=== PATIENT | male | born 2000 | race Two or more races ===

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

== ENCOUNTER 2019-05-23 13:29 | Emergency (ER) | payer MEDICAID, OTHER ==
[~2019-05-23] VITALS: Ht 188 cm; Wt 75.2 kg
[2019-05-23 13:43] VITALS: BP 124/69
[2019-05-23] MEDS ORDERED: HYDROcodone/acetaminophen 10/325mg tab PO ONE (15:55)
== END 2019-05-23 16:05 | disposition home or self-care (01) ==
LOC: ER 13:30
DX: S62.326A Displaced fracture of shaft of fifth metacarpal bone, right hand, initial encounter for closed fracture (principal); W22.8XXA Striking against or struck by other objects, initial encounter; Y93.89 Activity, other specified; Y92.89 Other specified places as the place of occurrence of the external cause; Y99.8 Other external cause status
CPT/HCPCS: 26605; 29125; 73130; 99283; 99284